=== PATIENT | male | born 2000 | race Caucasian/White ===

== ENCOUNTER 2021-03-20 15:49 | Emergency (ER) | payer BC, SELFPAY ==
--- NOTE | 2021-03-20 15:54 | ED.SKABFB ---
HPI - Skin/Abscess/Foreign Bdy General Chief complaint: Wound/Laceration Stated complaint: right leg wound inner thigh Time Seen by Provider: 03/20/21 16:00 Source: patient and RN notes reviewed History of Present Illness HPI narrative: Patient is a 20-year-old male who presents to the urgent care with complaints of a wound to the right inner thigh. Patient states he noticed on Tuesday and has gotten larger in redness, pain. Patient denies any fever but states he did take 1 to 500mg amoxicillin last night and 1 tablet this morning. Denies of any injury to the area. No other acute complaints. No acute distress noted. Patient read the plan of care. Some parts of this dictation were generated by voice recognition software and may contain typographical and/or grammatical inaccuracies. Related Data Allergies Allergy/AdvReac Type Severity Reaction Status Date / Time No Known Allergies Allergy Verified 03/20/21 16:09 Review of Systems Review of Systems: CONSTITUTIONAL: Denies fever, chills, or sweats. EYES: Denies visual changes, redness, or discharge. ENT: Denies rhinorrhea, congestion, sore throat, or otalgia. CARDIOVASCULAR: Denies chest pain, palpitations, or edema. RESPIRATORY: Denies cough or dyspnea. GASTROINTESTINAL: Denies abdominal pain, nausea, vomiting, or diarrhea. GENITOURINARY: Denies dysuria or hematuria. SKIN: Reports of right inner thigh wound MUSCULOSKELETAL: Denies back pain, joint pain, or myalgia. NEUROLOGIC: Denies headache, numbness, or weakness. All other systems reviewed are negative, except as documented in HPI. PMFSH Comments At the time of my signature, I reviewed and agree with the nursing past medical, surgical, social, and family history. There is no relevant family history pertinent to the patient complaint. Exam Narrative: GENERAL: This is a well-nourished, well-developed patient, in no apparent distress. HEAD: normocephalic, atraumatic. EYES: PERRL. Sclera clear/white. Vision is grossly intact. EARS: External ears normal NOSE: External nose normal with no obvious nasal discharge, nares without redness, no rhinorrhea. THROAT: Mucous membranes moist NECK: Neck supple SKIN: 15 x 14 area of erythema to the medial upper right thigh with a 6 x 6 cm firm center without drainage NEURO: awake, alert, and oriented to person, place and time. There were no obvious focal neurologic abnormalities. EXTREMITIES: No clubbing, cyanosis, or edema. Course Course Level of Care: Express Care Visit Vital Signs Vital signs: Vital Signs Temperature 99.8 F H 03/20/21 16:02 Pulse Rate 99 03/20/21 16:02 Respiratory Rate 16 03/20/21 16:02 Blood Pressure 115/76 03/20/21 16:02 Pulse Oximetry 100 03/20/21 16:02 Temperature 99.8 F H 03/20/21 16:02 Pulse Rate 99 03/20/21 16:02 Respiratory Rate 16 03/20/21 16:02 Blood Pressure 115/76 03/20/21 16:02 Pulse Oximetry 100 03/20/21 16:02 Reviewed MDM - Skin/Abscess/Foreign Bdy MDM Narrative Medical decision making narrative: Advised the patient to use warm compress or cool compress on the area for comfort. Use Tylenol/ibuprofen as needed for pain. Complete the oral antibiotic regimen as prescribed and stop taking your old amoxicillin prescription. Do not try to poke or prod at the area. Do not try to pop the area. Allow the infection to heal with the antibiotics. If the area does start to drain or open, use the prescription cream to the affected area as directed. Do not shave over the region. Marked the area of redness and if it does not improve over the next 48 hours or gets significantly larger?go to the emergency room. Follow-up with your PCP within 2 to 5 days or for worsening symptoms or failure to improve. Differential Diagnosis Differential diagnosis: Likely abscess of skin or subcutaneous tissue, viral exanthem, dermatophytosis, herpes zoster, cellulitis, eczema, insect bites and impetigo Critical Care Time Critical Care Time Cr
[2021-03-20 16:02] VITALS: BP 115/76; PULSE 99; RESP 16; TEMP 37.7; O2SAT 100
== END 2021-03-20 16:20 | disposition home or self-care (01) ==
PROVIDERS: Emergency Provider Nurse Practitioner Family
DX: L03.115 Cellulitis of right lower limb (principal); Z86.16 Personal history of COVID-19
CPT/HCPCS: 99213; G0463

== ENCOUNTER 2021-12-28 13:39 | Emergency (ER) | payer BC, SELFPAY ==
[2021-12-28 13:46] VITALS: BP 128/65; PULSE 89; RESP 20; TEMP 36.7; O2SAT 100
--- NOTE | 2021-12-28 15:03 | ED.URI ---
HPI - URI/Sore Throat General Chief Complaint: Upper Respiratory Infection Stated Complaint: sore throat sinus congestion Time Seen by Provider: 12/28/21 15:00 Source: patient and RN notes reviewed Mode of arrival: ambulatory Limitations: no limitations History of Present Illness HPI Narrative: 21-year-old male presents with concern of for 5 day history of nasal congestion with green drainage, cough, sore throat, hoarse voice. Reports he taken Tylenol without relief. He denies fever, aches, chills, sweats. MD elicited complaint: cough, sore throat and nasal congestion Related Data Allergies Allergy/AdvReac Type Severity Reaction Status Date / Time No Known Allergies Allergy Verified 12/28/21 14:01 Review of Systems Review of Systems: CONSTITUTIONAL: Denies malaise, chills, sweats, or fever. EYES: Denies visual changes, redness, or discharge. ENT: Reports rhinorrhea, congestion, and, hoarse voice sore throat. CARDIOVASCULAR: Denies chest pain, palpitations, or edema. RESPIRATORY: Reports cough. Denies dyspnea. GASTROINTESTINAL: Denies abdominal pain, nausea, vomiting, diarrhea SKIN: Denies rash or itching. MUSCULOSKELETAL: Denies myalgia. NEUROLOGIC: Denies headache. All systems reviewed & are unremarkable except as noted in HPI and below PMFSH Comments At time of signature, agree with nursing past medical, surgical, social and family history. There is no relevant family history pertinent to the presenting complaint Exam Narrative: GENERAL: Well-appearing, well-nourished, and in no acute distress. HEAD: Normocephalic EYES: PERRLA, conjunctivae clear ENT: Nares clear, turbinates edematous and erythematous, clear discharge. Mucous membranes moist. TM pearly griffith with dull light reflex bilaterally; no tragal tenderness. Oropharynx not erythematous without lesions. Tonsils not enlarged and without exudate, no drooling, no trismus, uvula midline. Mild hoarse voice NECK: Supple. No lymphadenopathy CHEST: Clear to auscultation, breath sounds equal. No wheezing, rhonchi, rales, or stridor. No respiratory distress, speaks in full sentences. HEART: Regular rate and rhythm. No murmur heard. SKIN: Warm, dry, no rash. NEURO: Alert and oriented x3. PSYCH: Normal mood and affect Course Course Emergency Course: Patient is aware of diagnosis, understands and agrees to treatment plan. Anticipatory guidance given. Patient agrees to follow-up as directed and is aware of reasons to seek care at the emergency department. Portions of this record may have been created with voice recognition software Level of Care: Express Care Visit Vital Signs Vital signs: Vital Signs Temperature 98.1 F 12/28/21 13:46 Pulse Rate 89 12/28/21 13:46 Respiratory Rate 20 12/28/21 13:46 Blood Pressure 128/65 12/28/21 13:46 Pulse Oximetry 100 12/28/21 13:46 Oxygen Delivery Room Air 12/28/21 13:46 Temperature 98.1 F 12/28/21 13:46 Pulse Rate 89 12/28/21 13:46 Respiratory Rate 20 12/28/21 13:46 Blood Pressure 128/65 12/28/21 13:46 Pulse Oximetry 100 12/28/21 13:46 Oxygen Delivery Room Air 12/28/21 13:46 Reviewed. MDM - URI/Sore Throat MDM Narrative Medical decision making narrative: Differential diagnosis considered: Singh virus, strep pharyngitis, allergic rhinitis, upper respiratory tract infection, sinusitis, rhinosinusitis, nasopharyngitis. viral pharyngitis, otitis media, otitis externa, pneumonia, bronchitis, viral cough syndrome, viral syndrome, and influenza. Exam findings show no acute concerns or changes; patient is non-toxic appearing and is in no distress. Patient is appropriate for outpatient treatment and follow-up. Lab Data Attestation: I reviewed the patient's lab results. Labs: Strep Screen Presumptive Negative *(Reference Range: Negative)* Critical Care Time Critical Care Time Critical Care Time: No Discharge Plan Discharge
== END 2021-12-28 15:15 | disposition home or self-care (01) ==
PROVIDERS: Emergency Provider Nurse Practitioner
DX: J06.9 Acute upper respiratory infection, unspecified (principal); J04.0 Acute laryngitis
CPT/HCPCS: 87081; 87880; 99213; G0463

== ENCOUNTER 2023-07-01 11:33 | Emergency (ER) | payer BC, SELFPAY ==
[2023-07-01 11:46] VITALS: BP 115/66; PULSE 79; RESP 18; TEMP 36.9; O2SAT 100
--- NOTE | 2023-07-01 12:09 | ED.URI ---
HPI - URI/Sore Throat General Chief Complaint: Upper Respiratory Infection Stated Complaint: Sore Throat/Coughing Blood History of Present Illness HPI Narrative: 22-year-old male presented for complaint of sore throat for 3 days. Endorses throat looked red and swollen, painful swallow and blood in mucous. Denies shortness of breath, wheezing, nausea, vomiting, diarrhea , fevers or chills. He took cough drops. Related Data Allergies Allergy/AdvReac Type Severity Reaction Status Date / Time No Known Allergies Allergy Verified 07/01/23 11:52 Review of Systems Review of Systems: CONSTITUTIONAL: Denies body aches, fever, chills, or sweats. EYES: Denies visual changes, redness, or discharge. ENT: Reports sore throat Denies rhinorrhea, congestion, or otalgia. CARDIOVASCULAR: Denies chest pain, palpitations, or edema. RESPIRATORY: Denies dyspnea. GASTROINTESTINAL: Denies abdominal pain, nausea, vomiting, or diarrhea. SKIN: Denies rash, itching, or wounds. MUSCULOSKELETAL: Denies back pain, joint pain, or myalgia. NEUROLOGIC: Denies headache Exam Narrative: GENERAL: mildly Ill-appearing, no acute distress. EYES: conjunctivae clear ENT: Mucous membranes moist. TM pearly griffith with normal light reflex bilaterally; no tragal tenderness. Oropharynx erythematous without lesions. Tonsils enlarged 2+ and without exudate. No drooling, no hoarseness, no trismus, uvula midline. No tripod positioning, hot potato voice, or soft palate swelling. NECK: Supple. CHEST: Clear to auscultation, breath sounds equal. No respiratory distress, speaks in full sentences. HEART: Regular rate and rhythm. No murmur heard. SKIN: Warm, dry, no rash. NEURO: Alert and oriented x3. Course Course Emergency Course: Patient is aware of diagnosis, understands and agrees to treatment plan. Anticipatory guidance given. Patient agrees to follow-up as directed and is aware of reasons to seek care at the emergency department. Portions of this record may have been created with voice recognition software Level of Care: Express Care Visit Vital Signs Vital signs: Vital Signs Temperature 98.4 F 07/01/23 11:46 Pulse Rate 79 07/01/23 11:46 Respiratory Rate 18 07/01/23 11:46 Blood Pressure 115/66 07/01/23 11:46 Pulse Oximetry 100 05/24/24 11:46 Oxygen Delivery Room Air 07/01/23 11:46 Temperature 98.4 F 07/01/23 11:46 Pulse Rate 79 07/01/23 11:46 Respiratory Rate 18 07/01/23 11:46 Blood Pressure 115/66 07/01/23 11:46 Pulse Oximetry 100 07/01/23 11:46 Oxygen Delivery Room Air 07/01/23 11:46 MDM - URI/Sore Throat MDM Narrative Medical decision making narrative: POS strep result reviewed with pt. Advise supportive treatments. Patient is appropriate for outpatient treatment and follow-up. Differential Diagnosis Differential diagnosis: Likely upper respiratory infection, viral infection and pharyngitis Discharge Plan Discharge Clinical Impression: Strep pharyngitis Patient Disposition: Home, Self-Care Condition: Stable Instructions: Antibiotic Form, Strep Throat (ED) Additional Instructions: - Take the antibiotic as directed. Fever and sore throat typically resolve within one to three days. Most patients can return to work, school, or daycare after 12 to 24 hours of antibiotic therapy, provided you are fever free and otherwise well. -Eat and drink things that are easy to swallow, like soft foods, cool liquids, tea with honey, or popsicles . -Salt water gargles and/or may use topical anesthetic ( Chloraseptic spray) or lozenges to relieve dryness or throat pain -Alternate Tylenol and ibuprofen as needed for pain and fever as directed. -Frequent hand washing or hand service porter is one of the best ways to prevent spread of infection. Throw away the toothbrush after 24hours of antibiotic. -Follow up with primary care provider in 2-3 days if condition is not improving -Go to the ER i
== END 2023-07-01 12:17 | disposition home or self-care (01) ==
PROVIDERS: Emergency Provider Nurse Practitioner Family
DX: J02.0 Streptococcal pharyngitis (principal)
CPT/HCPCS: 87880; 99213; G0463